=== PATIENT | female | born 1985 | race Caucasian/White ===

== ENCOUNTER 2019-12-25 02:16 | Emergency (ER) | payer MEDICAID ==
--- NOTE | 2019-12-25 03:04 | EDM.PDOC ---
ED HPI GENERAL MEDICAL PROBLEM - General Chief Complaint: Lower Extremity Injury/Pain Stated Complaint: LEG PAIN Time Seen by Provider: 12/25/19 02:43 Source of Information: Reports: Patient, RN Notes Reviewed - History of Present Illness INITIAL COMMENTS - FREE TEXT/NARRATIVE: 34 yr old female with R leg pain for about the past 2 weeks. Started after messing around with her boyfriend, leg twisted. Pain starts R butt, radiates to R knee. Not worse with motion. Started worrying about "blood clots this AM", mainly why she is here at this time. She does get mild bilat ankle edema at times. No personal hx blood clots. No current chest pain or difficulty breathing. Right Knee Pain Score (Numeric/FACES): 3 - Related Data Allergies Allergy/AdvReac Type Severity Reaction Status Date / Time ciprofloxacin Allergy Severe Abdominal Verified 12/25/19 02:47 Pain Penicillins Allergy Severe Lightheaded Verified 12/25/19 02:48 ness Home Meds: Home Meds . [No Known Home Meds] 12/25/19 [History] Review of Systems - Review of Systems Review Of Systems: See Below Mouth/Throat: Reports: No Symptoms Respiratory: Denies: Shortness of Breath, Pleuritic Chest Pain, Cough Cardiovascular: Reports: Chest Pain (occasional, none at this time) Musculoskeletal: Reports: Back Pain. Denies: Neck Pain, Shoulder Pain, Arm Pain Neurological: Denies: Numbness, Tingling, Difficulty Walking, Weakness ED EXAM, GENERAL - Physical Exam Exam: See Below General Appearance: Alert, No Apparent Distress Head: Atraumatic Respiratory/Chest: No Respiratory Distress, Lungs Clear, Normal Breath Sounds Cardiovascular: Regular Rate, Rhythm Back Exam: Normal Inspection. No: CVA Tenderness (L), CVA Tenderness (R), Para spinal Tenderness, Vertebral Tenderness Extremities: Other (pain with SLR on the right). No: Leg Pain, Increased Warmth, Redness Neurological: Alert, Oriented, No Motor/Sensory Deficits Skin Exam: Warm, Dry, Normal Color Course - Vital Signs Last Recorded V/S: Last Vital Signs Temp 98 F 12/25/19 02:42 Pulse 98 12/25/19 02:42 Resp 18 12/25/19 02:42 BP 121/77 12/25/19 02:42 Pulse Ox 100 12/25/19 02:42 - Orders/Labs/Meds Labs: Laboratory Tests 12/25/19 Range/Units 03:10 D-Dimer, Quantitative 0.31 (0.19-0.50) mg/L Departure - Departure Time of Disposition: 04:11 Disposition: Home, Self-Care 01 Condition: Fair Clinical Impression: Leg pain, right - Discharge Information Referrals: Lissy Baron, SEARCH ENGINE OPTIMIZATION ANALYST [Primary Care Provider] - Forms: ED Department Discharge Additional Instructions: The D dimer we checked was negative which quite reliably rules out a blood clot problem in your leg. Alternate ice and heat as needed. Advil or ibuprofen 600 mg 3 to 4 times daily. You may take tylenol in between doses for extra pain relief. Follow up clinic if not much better within 3 to 5 days as expected. Sepsis Event Note (ED) - Evaluation Sepsis Screening Result: No Definite Risk - Focused Exam Vital Signs: Vital Signs Temp Pulse Resp BP Pulse Ox 12/25/19 02:42 98 F 98 18 121/77 100
== END 2019-12-25 04:17 | disposition home or self-care (01) ==
LOC: JD.ED 02:16
DX: M79.604 Pain in right leg (principal); Z88.0 Allergy status to penicillin; Z88.1 Allergy status to other antibiotic agents
CPT/HCPCS: 36415; 85379; 99282; 99283